=== PATIENT | female | born 1975 | race African-American/Black ===

== ENCOUNTER 2016-08-17 09:33 | Emergency (ER) | payer MEDICAID, OTHER ==
[2016-08-17 10:27] LABS: ABSOLUTE EOSINOPHILS # (AUTO) 0.1 10^3/uL (0.0-0.6); ABSOLUTE MONOCYTES (AUTO) 0.3 10^3/uL (0.1-1.4); ABSOLUTE NEUT (AUTO) 3.6 10^3/uL (1.7-8.2); BASOPHILS % (AUTO) 0.7 % (0-2); EOSINOPHILS % (AUTO) 1.7 % (0-6); HEMATOCRIT 38.3 % (36.0-47.0); HEMOGLOBIN 12.6 g/dL (12.0-15.5); HGB HCT DIFFERENCE -0.5; LYMPHOCYTES % (AUTO) 33.2 % (13-45); MEAN CORPUSCULAR HEMOGLOBIN 30.7 pg (27.0-33.4); MEAN CORPUSCULAR HGB CONC 32.7 g/dL (32.0-36.0); MEAN CORPUSCULAR VOLUME 94 fl (80-97); MONOCYTES % (AUTO) 4.5 % (3-13); RED BLOOD COUNT 4.09 10^6/uL (3.72-5.28); RED CELL DISTRIBUTION WIDTH 13.8 % (11.5-14.0); SEGMENTED NEUTROPHILS % (AUTO) 59.9 % (42-78); WHITE BLOOD COUNT 6.1 10^3/uL (4.0-10.5)
[2016-08-17 10:45] LABS: ALANINE AMINOTRANSFERASE 29 U/L (9-52); ALBUMIN 4.7 g/dL (3.5-5.0); ALCOHOL 112 mg/dL (NONE DETECTED); ALKALINE PHOSPHATASE 57 U/L (38-126); ANION GAP 14 (5-19); ASPARTATE AMINO TRANSFERASE 28 U/L (14-36); BILIRUBIN,DIRECT 0.3 mg/dL (0.0-0.4); BILIRUBIN,TOTAL 0.6 mg/dL (0.2-1.3); BLOOD UREA NITROGEN 11 mg/dL (7-20); CALCIUM 9.6 mg/dL (8.4-10.2); CARBON DIOXIDE 29 mmol/L (22-30); CHLORIDE 104 mmol/L (98-107); CREATININE RESULT 0.65 mg/dL (0.52-1.25); GLUCOSE 84 mg/dL (75-110); POTASSIUM 4.1 mmol/L (3.6-5.0); SODIUM 147.3 mmol/L (137-145); TOTAL PROTEIN 8.6 g/dL (6.3-8.2)
--- NOTE | 2016-08-17 10:53 | EKG REPORT ---
SEVERITY:- ABNORMAL ECG - SINUS RHYTHM RIGHT ATRIAL ABNORMALITY CONSIDER RIGHT VENTRICULAR HYPERTROPHY : Confirmed by: Aileen Tejeda 17-Aug-2016 10:52:44
[2016-08-17 11:18] LABS: APPEARANCE,URINE CLEAR; BILIRUBIN,URINE NEGATIVE (NEGATIVE); GLUCOSE, URINE NEGATIVE (NEGATIVE); KETONES,URINE NEGATIVE (NEGATIVE); LEUKOCYTE ESTERASE,URINE SMALL (NEGATIVE); NITRITE,URINE NEGATIVE (NEGATIVE); PROTEIN,URINE NEGATIVE (NEGATIVE); URINE SPECIFIC GRAVITY 1.013
[2016-08-17 11:29] LABS: URINE BARBITURATES SCREEN NEGATIVE; URINE METHADONE SCREEN NEGATIVE; URINE OPIATES LOW NEGATIVE; URINE PHENCYCLIDINE SCREEN NEGATIVE
--- NOTE | 2016-08-17 11:41 | PSYCHOLOGICAL NOTE ---
Psych Note - Psych Note Psych Note: patient states she has been feeling depressed and anxious "for a while" and has been unable to sleep x24 hours. denies SI or HI. Patient disclosed that she has been feeling overwhelmed and cannot sleep. She states that she has been crying for the last 2 days. She states that there is been a lot going on and she has been very depressed. She disclosed that the trigger today was "my kids" stating that they were just not getting along. She continues to disclose that she has been feeling off for approximately 1 week and has been finding that she has been yelling a lot. She states "I need to be apparent to my kids and I am not in that place, I just need to get it together. 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 She states this hurt her feelings. She states now that it she has to worry about her job. Patient denies history of mental health issues and states she has no outpatient provider for mental health. Patient is alert and orientated to person place time and circumstance. Mood is dysphoric with tearful affect. Patient denies suicidal and homicidal ideation. Patient denies auditory visual hallucinations; patient is not demonstrating any behavior congruent with responding to internal stimuli. No delusions are noted. Thought process is organized and linear. Conversational speech was within normal rate tone and prosody. Eye contact was fair. Intellectual abilities appear to be within average range. Attention and concentration are fair. Insight, judgment, impulse control are fair. 303.00 Alcohol Intoxication- unknown if with or without use disorder at this time V62.29 (Z56.9) other problem related to employment Impression\\plan: Patient is currently under the influence of alcohol (112) and an empty bottle of Xanax was found with her belongings. At this time, patient will have to be reevaluated when sober.
--- NOTE | 2016-08-17 15:27 | ER Document Report ---
ED Psych Disorder / Suicide - General Chief Complaint: Psych Problem Stated Complaint: PSYCH EVAL Time Seen by Provider: 08/17/16 10:38 Mode of Arrival: Ambulatory Information source: Patient TRAVEL OUTSIDE OF THE [place] IN LAST 30 DAYS: No - HPI Patient complains to provider of: Other - depressed Suicide Risk Factors: Depressed Situational problems related to: Work Associated symptoms: Depressed Notes: patient states she has been feeling depressed and anxious "for a while" and has been unable to sleep x24 hours. denies SI or HI. Patient disclosed that she has been feeling overwhelmed and cannot sleep. She states that she has been crying for the last 2 days. She states that there is been a lot going on and she has been very depressed. She disclosed that the trigger today was "my kids" stating that they were just not getting along. She continues to disclose that she has been feeling off for approximately 1 week and has been finding that she has been yelling a lot. She states "I need to be apparent to my kids and I am not in that place, I just need to get it together. 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 She states this hurt her feelings. She states now that it she has to worry about her job. Patient denies history of mental health issues and states she has no outpatient provider for mental health. Patient is alert and orientated to person place time and circumstance. Mood is dysphoric with tearful affect. Patient denies suicidal and homicidal ideation. Patient denies auditory visual hallucinations; patient is not demonstrating any behavior congruent with responding to internal stimuli. No delusions are noted. Thought process is organized and linear. Conversational speech was within normal rate tone and prosody. Eye contact was fair. Intellectual abilities appear to be within average range. Attention and concentration are fair. Insight, judgment, impulse control are fair. V62.29 (Z56.9) other problem related to employment Impression\\plan: Patient is psychiatrically clear for discharge. [facility]. Patient states she thinks she needs antidepressants. Patient does not meet IVC criteria per [place] GS 120 2C. Patient denies suicidal and homicidal ideation. Patient is not currently in psychosis. She has no longer under the influence of alcohol. Patient denies normal consumption of alcohol. Dr. Aguirre was consulted and the care and management of this patient; attending physician is in agreement with recommendations and disposition. - Related Data Allergies/Adverse Reactions: No Known Allergies Allergy (Unverified 08/17/16 09:38) Past Medical History - Social History Smoking Status: Never Smoker Chew tobacco use (# tins/day): No Frequency of alcohol use: Social Drug Abuse: None Family History: None Patient has suicidal ideation: No Patient has homicidal ideation: No Renal/ Medical History: Denies: Hx Peritoneal Dialysis Surgical Hx: Negative Physical Exam - Vital signs Vitals: Temp Pulse Resp BP Pulse Ox 98.1 F 81 16 106/63 100 08/17/16 09:39 08/17/16 09:39 08/17/16 09:39 08/17/16 09:39 08/17/16 09:39 Course - Vital Signs Vital signs: Temp Pulse Resp BP Pulse Ox 98.1 F 77 20 103/61 99 08/17/16 11:07 08/17/16 11:06 08/17/16 11:06 08/17/16 11:06 08/17/16 11:06 - Laboratory Result Diagrams: 08/17/16 10:15 08/17/16 10:15 Laboratory results interpreted by me: 08/17/16 08/17/16 10:10 10:15 Sodium 147.3 H Total Protein 8.6 H Urine Urobilinogen 2.0 H Ur Leukocyte Esterase SMALL H Salicylates < 1.0 L Acetaminophen < 10 L Discharge - Discharge Clinical Impression: Depressive disorder Condition: Stable Disposition: HOME, SELF-CARE Additional Instructions: DEPRESSION: Your evaluation reveals that you have mental depression. While symptoms may be vague, they often include disturbance of sleep, fatigue, loss of appetite , and general loss of interest in life. While depression may be a side effect of drugs, or a reaction to a major change in your life, many cases have no known cause. If depression is acute, and related to a major loss in your life, you can expect it to clear completely with time. If you have been depressed a long time , are prone to repeated bouts of depression or low mood, or have been thinking of suicide, get help. Depression can be treated with anti-depressant medication and counselling. Long-term depression will often take a few weeks to clear, even with appropriate medication. Follow-up care is important. FOLLOW-UP CARE: Please follow up with [facility] for your mental health services in 3-5 days.~ If you experience worsening or a significant change in your symptoms, notify the physician immediately or return to the Emergency Department at any time for re-evaluation. Referrals: [facility] [Outside] - Follow up in 3-5 days
[2016-08-17] MEDS ORDERED: ACETAMINOPHEN 325 MG TABLET PO ONE (15:33)
--- NOTE | 2016-08-17 15:41 | ER Document Report ---
ED General - General Chief Complaint: Psych Problem Stated Complaint: PSYCH EVAL Time Seen by Provider: 08/17/16 10:38 Mode of Arrival: Ambulatory TRAVEL OUTSIDE OF THE [place] IN LAST 30 DAYS: No - HPI Patient complains to provider of: Depression insomnia Notes: Patient coming in for evaluation of depression and insomnia. Patient states that she has had depression for quite some time is never had any admissions to psychiatric facility denies any homicidal or suicidal ideation. Patient is requesting something for depression. Denies smoking denies any past medical history denies any recent travel. Patient is just states she is having a lot of social stress. Patient denies any fevers chills - Related Data Allergies/Adverse Reactions: No Known Allergies Allergy (Unverified 08/17/16 09:38) Past Medical History - General Information source: Patient - Social History Smoking Status: Never Smoker Chew tobacco use (# tins/day): No Frequency of alcohol use: Social Drug Abuse: None Family History: None Patient has suicidal ideation: No Patient has homicidal ideation: No Renal/ Medical History: Denies: Hx Peritoneal Dialysis Surgical Hx: Negative Review of Systems - Review of Systems Constitutional: No symptoms reported EENT: No symptoms reported Cardiovascular: No symptoms reported Respiratory: No symptoms reported Gastrointestinal: No symptoms reported Genitourinary: No symptoms reported Female Genitourinary: No symptoms reported Musculoskeletal: No symptoms reported Skin: No symptoms reported Hematologic/Lymphatic: No symptoms reported Neurological/Psychological: Depression Physical Exam - Vital signs Vitals: Temp Pulse Resp BP Pulse Ox 98.1 F 81 16 106/63 100 08/17/16 09:39 08/17/16 09:39 08/17/16 09:39 08/17/16 09:39 08/17/16 09:39 Interpretation: Normal - General General appearance: Appears well, Alert - HEENT Head: Normocephalic, Atraumatic Eyes: Normal Pupils: PERRL - Respiratory Respiratory status: No respiratory distress Chest status: Nontender Breath sounds: Normal Chest palpation: Normal - Cardiovascular Rhythm: Regular Heart sounds: Normal auscultation Murmur: No - Abdominal Inspection: Normal Distension: No distension Bowel sounds: Normal Tenderness: Nontender Organomegaly: No organomegaly - Back Back: Normal, Nontender - Extremities General upper extremity: Normal inspection, Nontender, Normal color, Normal ROM , Normal temperature General lower extremity: Normal inspection, Nontender, Normal color, Normal ROM , Normal temperature, Normal weight bearing. No: Alanis's sign - Neurological Neuro grossly intact: Yes Cognition: Normal Orientation: AAOx4 [place] Coma Scale Eye Opening: Spontaneous [place] Coma Scale Verbal: Oriented [place] Coma Scale Motor: Obeys Commands [place] Coma Scale Total: 15 Speech: Normal Motor strength normal: LUE, RUE, LLE, RLE Sensory: Normal - Psychological Associated symptoms: Depressed, Flat affect - Skin Skin Temperature: Warm Skin Moisture: Dry Skin Color: Normal Course - Re-evaluation Re-evalutation: 08/17/16 15:41 Patient is coming in today for evaluation of depression and insomnia. Patient at this time laboratory studies showed no critical pathology. Patient is medically cleared for psychiatric evaluation. 08/17/16 15:42 At this time her mental obtain is clear the patient for any inpatient evaluation I agree with her assessment patient was discharged home follow-up with resources provided - Vital Signs Vital signs: Temp Pulse Resp BP Pulse Ox 98.1 F 77 20 103/61 99 08/17/16 11:07 08/17/16 11:06 08/17/16 11:06 08/17/16 11:06 08/17/16 11:06 - Laboratory Result Diagrams: 08/17/16 10:15 08/17/16 10:15 Laboratory results interpreted by me: 08/17/16 08/17/16 10:10 10:15 Sodium 147.3 H Total Protein 8.6 H Urine Urobilinogen 2.0 H Ur Leukocyte Esterase SMALL H Salicylates < 1.0 L Acetaminophen < 10 L Discharge - Discharge Clinical Impression: Depressive disorder Additional Instructions: DEPRESSION: Your evaluation reveals that you have mental depression. While symptoms may be vague, they often include disturbance of sleep, fatigue, loss of appetite , and general loss of interest in life. While depression may be a side effect of drugs, or a reaction to a major change in your life, many cases have no known cause. If depression is acute, and related to a major loss in your life, you can expect it to clear completely with time. If you have been depressed a long time , are prone to repeated bouts of depression or low mood, or have been thinking of suicide, get help. Depression can be treated with anti-depressant medication and counselling. Long-term depression will often take a few weeks to clear, even with appropriate medication. Follow-up care is important. FOLLOW-UP CARE: Please follow up with [facility] for your mental health services in 3-5 days.~ If you experience worsening or a significant change in your symptoms, notify the physician immediately or return to the Emergency Department at any time for re-evaluation. Prescriptions: Hydroxyzine Pamoate [Vistaril 25 mg Capsule] 25 mg PO QHS #10 capsule Referrals: [facility] [Outside] - Follow up in 3-5 days
[2016-08-17 15:53] VITALS: BP 102/68
== END 2016-08-17 16:08 | disposition home or self-care (01) ==
LOC: ER 09:33
DX: F32.9 Major depressive disorder, single episode, unspecified (principal); G47.00 Insomnia, unspecified
CPT/HCPCS: 93005; 99284; 36415; 80307 ×4; 84703; 85025; 80053; 81001; 93010; J3490